=== PATIENT | male | born 1965 | race Caucasian/White ===

== ENCOUNTER 2016-10-28 12:15 | Inpatient (IN) | payer OTHER ==
[~2016-10-28] VITALS: Ht 170.2 cm; Wt 70.0 kg
[2016-10-28] MEDS ORDERED: SOD CHLORIDE 0.9% 1,000 ML IV STA (12:19)
[2016-10-28] MEDS ORDERED: ASPIRIN 81 MG TAB PO STA (12:19)
[2016-10-28] MEDS ORDERED: NITROGLYCERIN (SL) 0.4 MG TAB SL PRN ×2 (12:30→17:00)
[2016-10-28 12:40] LABS: ADD SCAN DIFF NO
[2016-10-28 12:46] LABS: BASOPHIL # 0.1 10^3/ul (0.0-0.1); BASOPHILS % 0.9 % (0.0-2.0); EOSINOPHILS % 0.5 % (0.0-7.0); HEMATOCRIT 42.6 % (42.0-52.0); HEMOGLOBIN 14.6 g/dl (14.0-18.0); LYMPHOCYTES # 2.1 10^3/ul (0.8-2.9); LYMPHOCYTES % 31.8 % (15.0-51.0); MEAN CORPUSCULAR HEMOGLOBIN 31.5 pg (29.0-33.0); MEAN CORPUSCULAR HGB CONC 34.3 g/dl (32.0-37.0); MEAN CORPUSCULAR VOLUME 91.8 fl (82.0-101.0); MEAN PLATELET VOLUME 9.8 fl (7.4-10.4); MONOCYTE # 0.5 10^3/ul (0.3-0.9); NEUTROPHIL # 3.9 10^3/ul (1.6-7.5); NEUTROPHILS % 58.7 % (39.0-77.0); PLATELET COUNT 261 10^3/UL (140-415); RED BLOOD COUNT 4.64 10^6/ul (4.70-6.10); RED CELL DISTRIBUTION WIDTH 12.8 % (11.5-14.5); WHITE BLOOD COUNT 6.6 10^3/ul (4.8-10.8)
[2016-10-28 13:01] LABS: CHLORIDE 105 mmol/L (97-110)
[2016-10-28 13:02] LABS: SODIUM 141 mmol/L (135-144)
[2016-10-28 13:04] LABS: ANION GAP 16 (8-16); CARBON DIOXIDE 24 mmol/L (21-31); CREATININE 0.59 mg/dl (0.61-1.24)
[2016-10-28 13:05] LABS: BLOOD UREA NITROGEN 17 mg/dl (7-20); CALCIUM 9.2 mg/dl (8.4-10.2); GLUCOSE 147 mg/dl (70-220)
[2016-10-28 13:06] LABS: INR 0.99; PROTIME 13.1 Sec (12.2-14.2)
[2016-10-28 13:12] LABS: B-TYPE NATRIURETIC PEPTIDE 30 PG/ML (0-125)
[2016-10-28 13:15] LABS: TROPONIN-I < 0.012 ng/ml (0.00-0.12)
--- NOTE | 2016-10-28 13:16 | RADRPT ---
PROCEDURE: XR Chest. CLINICAL INDICATION: Chest pain. TECHNIQUE: Single frontal view. COMPARISON: None. FINDINGS: The lungs are clear. The heart size is normal. There is no pleural effusion. There is no pneumothorax. IMPRESSION: 1. Normal chest radiograph. RPTAT: QQ .Humza Miller MD, Date Time Electronically viewed and signed by .Humza Miller MD, on 10/28/2016 13:15 .R/
[2016-10-28 13:46] LABS: PARTIAL THROMBOPLASTIN TIME 29.5 Sec (25.0-35.0)
--- NOTE | 2016-10-28 14:39 | ERD ---
ER Documentation Chief Complaint Date/Time DATE: 10/28/16 TIME: 14:36 Chief Complaint BIB RA 39 FOR EVAL OF SUBSTERNAL CP HPI This [age]-year-old male presents to the emergency room for evaluation of chest pain. This patient was brought into the emergency room by ambulance from his work. The patient states that when he was at work he got into an argument with a family member and started to bleed heavily. The patient states that his arms began to become numb and a started having chest pain. When EMS arrived they gave the patient at 162 mg of aspirin, 2 tabs of sublingual nitroglycerin and brought the patient to the emergency room for evaluation. The patient describes his pain as a pressure-like sensation in the center of his chest with no radiation. ROS All systems reviewed and are negative except as per history of present illness. Medications Home Meds No Active Prescriptions or Reported Meds Allergies Allergies: Coded Allergies: No Known Allergy (Unverified , 10/28/16) PMhx/Soc Medical and Surgical Hx: pt denies Medical Hx, pt denies Surgical Hx Hx Alcohol Use: No Hx Substance Use: No Hx Tobacco Use: No Smoking Status: Never smoker Physical Exam Vitals Vital Signs Date Time Temp Pulse Resp B/P Pulse Ox O2 Delivery O2 Flow Rate FiO2 10/28/16 12:42 64 20 118/83 99 Room Air 10/28/16 12:33 62 20 133/93 Nasal Cannula 2.0 10/28/16 12:21 Nasal Cannula 2 10/28/16 12:20 97.9 64 18 160/101 97 Physical Exam INITIAL VITAL SIGNS: Reviewed by me GENERAL: The patient is well developed and appropriate for usual state of health in no apparent distress HEENT: Pupils equal, round, and reactive to light. EOMI. There is no scleral icterus. NECK: C-spine is soft and supple, there is no meningismus. There is no cervical lymphadenopathy. LUNGS: Clear to auscultation bilaterally. There are no rales, wheezes or rhonchi. HEART: Regular rate and rhythm, no murmurs, clicks, rubs or gallops. ABDOMEN: Soft, non-tender, non-distended. There are bowel sounds in all four quadrants. No rebound or guarding. EXTREMITIES: There is no peripheral cyanosis or edema. No focal swelling or erythema. NEUROLOGICAL: The patient moves all four extremities with 5/5 strength. Cranial nerves II - XII are intact. Normal gait. Alert and oriented SKIN: There is no apparent rash or petechiae. HEME/LYMPHATIC: There is no evidence of excessive bruising or lymphedema. PSYCHIATRIC: The patient appears to be mildly anxious Result Diagram: 10/28/16 1235 10/28/16 1235 Results 24 hrs Laboratory Tests Test 10/28/16 12:35 White Blood Count 6.610^3/ul Red Blood Count 4.6410^6/ul Hemoglobin 14.6g/dl Hematocrit 42.6% Mean Corpuscular Volume 91.8fl Mean Corpuscular Hemoglobin 31.5pg Mean Corpuscular Hemoglobin Concent 34.3g/dl Red Cell Distribution Width 12.8% Platelet Count 00494^3/UL Mean Platelet Volume 9.8fl Neutrophils % 58.7% Lymphocytes % 31.8% Monocytes % 7.0% Eosinophils % 0.5% Basophils % 0.9% Nucleated Red Blood Cells % 0.0/100WBC Neutrophils # 3.910^3/ul Lymphocytes # 2.110^3/ul Monocytes # 0.510^3/ul Eosinophils # 0.010^3/ul Basophils # 0.110^3/ul Nucleated Red Blood Cells # 0.010^3/ul Prothrombin Time 13.1Sec Prothrombin Time Ratio 1.0 INR International Normalized Ratio 0.99 Activated Partial Thromboplast Time 29.5Sec Sodium Level 141mmol/L Potassium Level 4.0mmol/L Chloride Level 105mmol/L Carbon Dioxide Level 24mmol/L Anion Gap 16 Blood Urea Nitrogen 17mg/dl Creatinine 0.59mg/dl Glucose Level 147mg/dl Calcium Level 9.2mg/dl Troponin I < 0.012ng/ml B-Type Natriuretic Peptide 30PG/ML Current Medications Medications (Trade) Dose Ordered Sig/Kaila Route PRN Reason Start Time Stop Time Status Last Admin Dose Admin Sodium Chloride (NS) 1,000 ml @ 1,000 mls/hr Q1H STAT IV 10/28/16 12:19 10/28/16 13:18 DC 10/28/16 12:29 Aspirin (Aspirin) 162 mg ONCE STAT PO 10/28/16 12:19 10/28/16 12:20 DC 10/28/16 12:28 Nitroglycerin (Nitroglycerin (Sl Tab) 0.4 Mg) 1 tab Q5M UP TO 3 DOSES PRN SL CHEST PAIN 10/28/16 12:30 10/28/16 12:29 Procedures/MDM EKG: Rate/Rhythm: [Normal Sinus Rhythm] QRS, ST, T-waves: [No changes consistent w/ acute ischemia] Impression: [No evidence of ischemia or arrhythmia] EKG: #2 Rate/Rhythm: [Normal Sinus Rhythm] QRS, ST, T-waves: [No changes consistent w/ acute ischemia] Impression: [No evidence of ischemia or arrhythmia] EKG: #3 Rate/Rhythm: [Normal Sinus Rhythm] QRS, ST, T-waves: [No changes consistent w/ acute ischemia] Impression: [No evidence of ischemia or arrhythmia] Chest X-ray 1V Interpreted by me: Soft Tissue: No acute abnormalities Bones: No acute abnormalities Mediastinum/Cardiac Silhouette/Lungs: [No acute abnormalities] This 61-year-old male presents to the ER for evaluation of chest pain. When I evaluated this patient he appeared to be moderately anxious. There was a concern for possible ST elevation WI in the EEG prior to hospital arrival. I evaluated this EKG and the patient did not have an ST elevation WI. Obtain serial EKGs in the emergency room, none of which showed any ST elevations. This patient was given aspirin, nitroglycerin. Lab work was obtained including a chest x-ray. Troponin is normal. Chest x-ray is clear. This patient states is feeling much better now, and upon my reevaluation, the patient does not appear to be anxious anymore. This patient had a second troponin drawn and will be discharged home at this time. Differential diagnoses entertained was broad with potential high acuity. Patient has been evaluated for acute myocardial infarction, unstable angina, aortic dissection, pulmonary embolism, other intrathoracic and cardiac concerns. Ultimately the patient's evaluation is nondiagnostic. Based on the patient's lack of risk factors, as well as the patient's clinical, laboratory, and imaging data, the patient appears to be low risk for these high risk causes of chest pain. Departure Diagnosis: Primary Impression: Chest pain Additional Impression: Anxiety attack Condition: MARIE Dhillon DO Oct 28, 2016 14:39
[2016-10-28 16:25] VITALS: TEMP 98.5
[2016-10-28] MEDS ORDERED: HEPARIN 1000 UNITS/ML 10 ML INJ IV PRN (17:00)
[2016-10-28] MEDS ORDERED: HEPARIN 1000 UNITS/ML 10 ML INJ IV ONE (17:00)
--- NOTE | 2016-10-28 17:29 | ERA ---
ER Documentation Chief Complaint Date/Time DATE: 10/28/16 TIME: 17:20 Chief Complaint BIB RA 39 FOR EVAL OF SUBSTERNAL CP HPI 51-year-old man signed out to me for follow-up second troponin level. Patient presented today with concerning chest pain but the initial troponin and multiple EKGs were unremarkable. Initial workup was fairly unremarkable and the patient was treated with aspirin and nitroglycerin. Please refer to physician's earlier report for full ED management. ROS All systems reviewed and are negative except as per history of present illness. Medications Home Meds No Active Prescriptions or Reported Meds Allergies Allergies: Coded Allergies: No Known Allergy (Unverified , 10/28/16) PMhx/Soc None Medical and Surgical Hx: pt denies Medical Hx, pt denies Surgical Hx Hx Alcohol Use: No Hx Substance Use: No Hx Tobacco Use: No Smoking Status: Never smoker FmHx Family History: No diabetes Physical Exam Vitals Vital Signs Date Time Temp Pulse Resp B/P Pulse Ox O2 Delivery O2 Flow Rate FiO2 10/28/16 16:25 98.5 54 13 143/89 100 Nasal Cannula 2.0 10/28/16 12:42 64 20 118/83 99 Room Air 10/28/16 12:33 62 20 133/93 Nasal Cannula 2.0 10/28/16 12:21 Nasal Cannula 2 10/28/16 12:20 97.9 64 18 160/101 97 Physical Exam GENERAL: Well-developed, well-nourished, well-hydrated, in no apparent distress , looks nontoxic in appearance HEENT: Moist mucous membranes, pink conjunctiva, no cervical spine tenderness or step-off deformities, no goiter, no jaundice or icterus, extraocular movements intact without pain. No submandibular induration, and no pharyngeal erythema NEURO: Alert and oriented 3, cranial nerves II through XII intact bilaterally, pupils equal round reactive to light, no focal deficits or facial asymmetry, sensation intact distally Strength 5/5 in upper and lower extremities bilaterally CARDIAC: Bradycardic and regular, no murmurs rubs or gallops LUNGS: Clear bilaterally no wheezing crackles or stridor ABDOMEN: Soft nontender, no guarding, no rigidity, no rebound, no psoas sign no obturator sign. Normoactive bowel sounds SKIN: Warm and dry to touch, no abrasions, contusions, or hematomas, no lacerations, no ecchymosis, no target lesions, and without ulcers EXTREMITIES: No clubbing cyanosis or edema, calves are bilaterally symmetrical, no Homans sign, no popliteal cord sign. Distal pulses equal and bilateral PSYCH: Normal affect without agitation or irritability Result Diagram: 10/28/16 1235 10/28/16 1235 Results 24 hrs Laboratory Tests Test 10/28/16 12:35 10/28/16 15:05 White Blood Count 6.610^3/ul Red Blood Count 4.6410^6/ul Hemoglobin 14.6g/dl Hematocrit 42.6% Mean Corpuscular Volume 91.8fl Mean Corpuscular Hemoglobin 31.5pg Mean Corpuscular Hemoglobin Concent 34.3g/dl Red Cell Distribution Width 12.8% Platelet Count 20247^3/UL Mean Platelet Volume 9.8fl Neutrophils % 58.7% Lymphocytes % 31.8% Monocytes % 7.0% Eosinophils % 0.5% Basophils % 0.9% Nucleated Red Blood Cells % 0.0/100WBC Neutrophils # 3.910^3/ul Lymphocytes # 2.110^3/ul Monocytes # 0.510^3/ul Eosinophils # 0.010^3/ul Basophils # 0.110^3/ul Nucleated Red Blood Cells # 0.010^3/ul Prothrombin Time 13.1Sec Prothrombin Time Ratio 1.0 INR International Normalized Ratio 0.99 Activated Partial Thromboplast Time 29.5Sec Sodium Level 141mmol/L Potassium Level 4.0mmol/L Chloride Level 105mmol/L Carbon Dioxide Level 24mmol/L Anion Gap 16 Blood Urea Nitrogen 17mg/dl Creatinine 0.59mg/dl Glucose Level 147mg/dl Calcium Level 9.2mg/dl Troponin I < 0.012ng/ml 3.470ng/ml B-Type Natriuretic Peptide 30PG/ML Current Medications Medications (Trade) Dose Ordered Sig/Kaila Route PRN Reason Start Time Stop Time Status Last Admin Dose Admin Sodium Chloride (NS) 1,000 ml @ 1,000 mls/hr Q1H STAT IV 10/28/16 12:19 10/28/16 13:18 DC 10/28/16 12:29 Aspirin (Aspirin) 162 mg ONCE STAT PO 10/28/16 12:19 10/28/16 12:20 DC 10/28/16 12:28 Nitroglycerin (Nitroglycerin (Sl Tab) 0.4 Mg) 1 tab Q5M UP TO 3 DOSES PRN SL CHEST PAIN 10/28/16 12:30 10/28/16 12:29 Aspirin (Halfprin) 81 mg DAILY PO 10/29/16 09:00 UNV Docusate Sodium (Colace) 100 mg BID PO 10/28/16 21:00 Atorvastatin Calcium (Lipitor) 40 mg HS PO 10/28/16 21:00 UNV Lisinopril (Zestril) 20 mg DAILY PO 10/28/16 17:00 UNV Nitroglycerin (Nitroglycerin (Sl Tab) 0.4 Mg) 1 tab Q5M PRN SL ANGINA 10/28/16 17:00 UNV Miscellaneous Information (* Miscellaneous Pharmacy Order) DC previous hepa... ONCE ONCE XX 10/28/16 17:00 10/28/16 17:01 UNV Heparin Sodium (Porcine) (Heparin (1000 Units/ml)) 4,000 unit ONCE ONCE IV 10/28/16 17:00 10/28/16 17:01 UNV Heparin Sodium (Porcine) 4000 unit 4,000 unit PER PROTOCOL PRN IV aPTT<47 10/28/16 17:00 UNV Heparin Sodium (Porcine) (Heparin 88459 Units/250 ml) 250 ml @ 0 mls/hr PER PROTOCOL IV 10/28/16 17:00 UNV Procedures/MDM Second troponin was positive at 3.5 compared to the initial troponin which was 0. Immediate electrocardiogram was performed, read by me reveals a sinus bradycardia 53 bpm, normal axis, narrow QRS complex, no concerning ST elevations or depressions noted. I reviewed patient's previous EKGs and lab findings which were unremarkable. Patient was already treated with antiplatelet therapy and nitroglycerin. Patient states he has "mild" chest pain and states his chest pain is much improved compared to arrival. 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 [place] authorization number was [id number]. 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 Further management deferred to hospitalist. Departure Diagnosis: Primary Impression: Non-STEMI (non-ST elevated myocardial infarction) Ruled Out: Chest pain, Anxiety attack Condition: Serious Patient Instructions: Chest Pain, Uncertain Cause, Panic Attack Referrals: [facility] YOU HAVE RECEIVED A MEDICAL SCREENING EXAM AND THE RESULTS INDICATE THAT YOU DO NOT HAVE A CONDITION THAT REQUIRES URGENT TREATMENT IN THE EMERGENCY DEPARTMENT. FURTHER EVALUATION AND TREATMENT OF YOUR CONDITION CAN WAIT UNTIL YOU ARE SEEN IN YOUR DOCTORS OFFICE WITHIN THE NEXT 1-2 DAYS. IT IS YOUR RESPONSIBILITY TO MAKE AN APPOINTMENT FOR FOLOW-UP CARE. IF YOU HAVE A PRIMARY DOCTOR --you should call your primary doctor and schedule an appointment IF YOU DO NOT HAVE A PRIMARY DOCTOR YOU CAN CALL OUR PHYSICIAN REFERRAL HOTLINE AT IF YOU CAN NOT AFFORD TO SEE A PHYSICIAN YOU CAN CHOSE FROM THE FOLLOWING [facility] [address] [facility] [address] [facility] [facility] [address] [facility] [address] [facility] [facility] [address] [facility] [facility]. [address] Additional Instructions: Regrese a estas instalaciones si no se mejora aidan esperbamos o aidan le jettmos. VANESSA BELLO MD Oct 28, 2016 17:29
[2016-10-28 18:45] VITALS: PULSE 57
--- NOTE | 2016-10-28 19:27 | HP ---
Date/Time of Note Date/Time of Note DATE: 10/28/16 TIME: 19:20 Assessment/Plan VTE Prophylaxis VTE Prophylaxis Intervention: heparin Lines/Catheters IV Catheter Type (from Nrs): Saline Lock Assessment/Plan Assessment/Plan 51 yo M with 1. NSTEMI 2. Hypertension: ?new diagnosis PLAN: admit tele heparin drip / cardio consult / hold off on BB as patient is bradycardic / ACEi / ASA / Statin 2D echo / Nitroglycerin PRN Supportive care. HPI/ROS Admit Date/Time Admit Date/Time Oct 28, 2016 at 16:40 Hx of Present Illness PRESENTING COMPLAINT: Chest pain HISTORY OF PRESENTING COMPLAINT: This is 51-year-old male presents to the emergency room for evaluation of chest pain. This patient was brought into the emergency room by ambulance from his work. The patient states that his arms began to become numb and a started having chest pain while in an argument. When EMS arrived they gave the patient at 162 mg of aspirin, 2 tabs of sublingual nitroglycerin and brought the patient to the emergency room for evaluation. The patient describes his pain as a pressure-like sensation in the center of his chest with no radiation. ROS 12 point review if systems was done and pertinent findings are as noted. PMH/Family/Social Past Medical History Medical History: no pertinent history Past Surgical History Past Surgical Hx: no surgical history Family History Significant Family History: heart disease, hypertension Social History Alcohol Use: none Smoking Status: Never smoker Drug Use: none Exam/Review of Systems Vital Signs Vitals VS - Last 72 Hours, by Label Date Time Temp Pulse Resp B/P Pulse Ox O2 Delivery O2 Flow Rate FiO2 10/28/16 18:45 57 10/28/16 17:47 71 18 156/87 100 Nasal Cannula 2.0 10/28/16 16:25 98.5 54 13 143/89 100 Nasal Cannula 2.0 10/28/16 12:42 64 20 118/83 99 Room Air 10/28/16 12:33 62 20 133/93 Nasal Cannula 2.0 10/28/16 12:21 Nasal Cannula 2 10/28/16 12:20 97.9 64 18 160/101 97 Vital Signs Date Time Temp Pulse Resp B/P Pulse Ox O2 Delivery O2 Flow Rate FiO2 10/28/16 18:45 57 10/28/16 17:47 18 156/87 100 Nasal Cannula 2.0 10/28/16 16:25 98.5 Exam Constitutional: alert, oriented, No distress Psych: nl mood/affect Head: atraumatic, normocephalic Eyes: PERRL ENMT: mucosa pink and moist Neck: non-tender, supple Respiratory: clear to auscultation, normal air movement Cardiovascular: No murmurs/extra sounds, No regular rate and rhythm (kait) Gastrointestinal: bowel sounds, non-tender, soft Extremities: No edema Neurological: nl mental status, No focal weakness Skin: No rash or lesions Labs Result Diagram: 10/28/16 1235 10/28/16 1235 Medications Medications Current Medications Aspirin (Halfprin) 81 mg DAILY PO ; Start 10/29/16 at 09:00 Docusate Sodium (Colace) 100 mg BID PO ; Start 10/28/16 at 21:00 Atorvastatin Calcium (Lipitor) 40 mg HS PO ; Start 10/28/16 at 21:00 Lisinopril (Zestril) 20 mg DAILY PO ; Start 10/28/16 at 17:00 Nitroglycerin (Nitroglycerin (Sl Tab) 0.4 Mg) 1 tab Q5M PRN SL ANGINA; Start at 17:00 Metoprolol Tartrate (Lopressor) 25 mg BID PO ; Start 10/28/16 at 21:00 Isosorbide Dinitrate (Isordil) 20 mg TID PO ; Start 10/28/16 at 21:00 Procedures Procedures Laboratory Tests Test 10/28/16 12:35 10/28/16 15:05 White Blood Count 6.610^3/ul Red Blood Count 4.6410^6/ul Hemoglobin 14.6g/dl Hematocrit 42.6% Mean Corpuscular Volume 91.8fl Mean Corpuscular Hemoglobin 31.5pg Mean Corpuscular Hemoglobin Concent 34.3g/dl Red Cell Distribution Width 12.8% Platelet Count 08293^3/UL Mean Platelet Volume 9.8fl Neutrophils % 58.7% Lymphocytes % 31.8% Monocytes % 7.0% Eosinophils % 0.5% Basophils % 0.9% Nucleated Red Blood Cells % 0.0/100WBC Neutrophils # 3.910^3/ul Lymphocytes # 2.110^3/ul Monocytes # 0.510^3/ul Eosinophils # 0.010^3/ul Basophils # 0.110^3/ul Nucleated Red Blood Cells # 0.010^3/ul Prothrombin Time 13.1Sec Prothrombin Time Ratio 1.0 INR International Normalized Ratio 0.99 Activated Partial Thromboplast Time 29.5Sec Sodium Level 141mmol/L Potassium Level 4.0mmol/L Chloride Level 105mmol/L Carbon Dioxide Level 24mmol/L Anion Gap 16 Blood Urea Nitrogen 17mg/dl Creatinine 0.59mg/dl Glucose Level 147mg/dl Calcium Level 9.2mg/dl Troponin I < 0.012ng/ml 3.470ng/ml B-Type Natriuretic Peptide 30PG/ML PROCEDURE: XR Chest. CLINICAL INDICATION: Chest pain. TECHNIQUE: Single frontal view. COMPARISON: None. FINDINGS: The lungs are clear. The heart size is normal. There is no pleural effusion. There is no pneumothorax. IMPRESSION: 1. Normal chest radiograph. RPTAT: QQ .Humza Miller MD, Date Time Electronically viewed and signed by .Humza Miller MD, MD on 10/28/2016 13:15 .R/ CC: MARIE CARDENAS DO I reviewed EKG Rate: Within normal limits Rhythm: sinus Note: No ST elevation or depressions noted concerning for acute ischemic event. WARREN KIM Oct 28, 2016 19:27
[2016-10-28 20:14] VITALS: PULSE 58
[2016-10-28 20:19] VITALS: BP 131/77; RESP 20
[2016-10-28] MEDS: ISOSORBIDE DINITRATE 20 MG TAB PO SCH (20:35)
[2016-10-28] MEDS: LISINOPRIL 20 MG TAB PO SCH (20:35)
[2016-10-28] MEDS: DOCUSATE SODIUM 100 MG CAP PO SCH (20:35)
[2016-10-28] MEDS: ATORVASTATIN 40 MG TAB PO SCH (20:35)
[2016-10-28] MEDS: METOPROLOL 25 MG TAB PO SCH (20:36)
[2016-10-28] MEDS: HEPARIN 25000 UNITS/250 ML 250 ML IV SCH (20:48)
[2016-10-28 21:00] VITALS: Ht 170.2 cm; Wt 70.0 kg
[2016-10-28 22:17] LABS: CK-MB 7.42 ng/ml (0.0-2.4)
[2016-10-28 22:25] LABS: TROPONIN-I 3.54 ng/ml (0.00-0.12)
[2016-10-29] VITALS (14 sets, daily range): BP systolic 96–117; BP diastolic 55–68; PULSE 40–66; RESP 19–20
[2016-10-29 01:22] LABS: ADD UMIC NO; URINE BILIRUBIN (Dip) NEGATIVE (NEGATIVE); URINE BLOOD (Dip) NEGATIVE (NEGATIVE); URINE COLOR LT. YELLOW (YELLOW); URINE GLUCOSE (Dip) NEGATIVE (NEGATIVE); URINE KETONES (Dip) NEGATIVE (NEGATIVE); URINE LEUKOCYTE ESTERASE (Dip) NEGATIVE (NEGATIVE); URINE NITRITE (Dip) NEGATIVE (NEGATIVE); URINE TOTAL PROTEIN (Dip) NEGATIVE (NEGATIVE); URINE UROBILINOGEN (Dip) 0.2 E.U./dL (0.1-1.0)
[2016-10-29 02:39] LABS: BARBITURATES Negative (NEGATIVE); BENZODIAZEPINES Negative (NEGATIVE); CANNABINOIDS Negative (NEGATIVE); COCAINE Negative (NEGATIVE)
[2016-10-29 02:40] LABS: OPIATES Negative (NEGATIVE)
[2016-10-29 02:40] LABS: CK-MB 5.69 ng/ml (0.0-2.4); TROPONIN-I 1.69 ng/ml (0.00-0.12)
[2016-10-29 03:32] LABS: ADD SCAN DIFF NO
[2016-10-29 03:47] LABS: BASOPHIL # 0.1 10^3/ul (0.0-0.1); BASOPHILS % 0.8 % (0.0-2.0); EOSINOPHILS # 0.1 10^3/ul (0.0-0.5); EOSINOPHILS % 1.6 % (0.0-7.0); HEMOGLOBIN 13.1 g/dl (14.0-18.0); LYMPHOCYTES # 1.9 10^3/ul (0.8-2.9); LYMPHOCYTES % 30.2 % (15.0-51.0); MEAN CORPUSCULAR HEMOGLOBIN 31.7 pg (29.0-33.0); MEAN CORPUSCULAR HGB CONC 34.5 g/dl (32.0-37.0); MONOCYTE # 0.6 10^3/ul (0.3-0.9); MONOCYTES % 8.9 % (0.0-11.0); NEUTROPHIL # 3.7 10^3/ul (1.6-7.5); PLATELET COUNT 233 10^3/UL (140-415); RED BLOOD COUNT 4.13 10^6/ul (4.70-6.10); RED CELL DISTRIBUTION WIDTH 12.6 % (11.5-14.5); WHITE BLOOD COUNT 6.4 10^3/ul (4.8-10.8)
[2016-10-29 03:51] LABS: ALBUMIN 3.3 g/dl (3.3-4.9)
[2016-10-29 03:52] LABS: POTASSIUM 3.7 mmol/L (3.5-5.1)
[2016-10-29 03:54] LABS: BILIRUBIN,INDIRECT 1.1 mg/dl (0-1.1); BILIRUBIN,TOTAL 1.1 mg/dl (0.2-1.3); CREATININE 0.57 mg/dl (0.61-1.24); TOTAL PROTEIN 6.4 g/dl (6.1-8.1)
[2016-10-29 03:55] LABS: MAGNESIUM 1.8 mg/dl (1.7-2.5)
[2016-10-29 03:56] LABS: CHOL/HDL RATIO 4.2 RATIO
[2016-10-29 08:39] LABS: THYROID STIMULATING HORMONE 1.47 MIU/L (0.465-4.680)
[2016-10-29] MEDS: ISOSORBIDE DINITRATE 20 MG TAB PO SCH ×3 (09:09→21:00)
[2016-10-29] MEDS: ASPIRIN (EC) 81 MG TAB PO SCH (09:09)
[2016-10-29] MEDS: DOCUSATE SODIUM 100 MG CAP PO SCH ×2 (09:09→21:35)
[2016-10-29] MEDS: LISINOPRIL 20 MG TAB PO SCH (09:09)
[2016-10-29] MEDS: METOPROLOL 25 MG TAB PO SCH ×2 (09:09→21:00)
[2016-10-29] MEDS: HEPARIN 25000 UNITS/250 ML 250 ML IV SCH ×2 (09:41→20:03)
[2016-10-29] MEDS ORDERED: ACETAMINOPHEN 325 MG TAB PO PRN (14:00)
--- NOTE | 2016-10-29 15:11 | CONS ---
DATE OF ADMISSION: 10/28/2016 DATE OF CONSULTATION: 10/28/2016 REASON FOR CONSULTATION: Non-ST elevation myocardial infarction. REQUESTING PHYSICIAN: Dr. Kim from the hospitalist service. HISTORY OF PRESENT ILLNESS: Mr. Schulz is a very pleasant 51-year-old male with history of chronic back pain, who initially presented with complaints of substernal chest pain after having an argument with someone at work. Patient poorly describes the chest pain on the left side of his chest. Upon arrival to the emergency department, temperature 97.9, blood pressure is 160/101, pulse 64 , respiratory rate 18, saturating 97%. The patient's labs revealed white count 6.6, hemoglobin 14.6, platelet count 261. Sodium 141, potassium 4.0, creatinine of 0.59. Troponin initially negative. BNP of 30, INR 0.99. The patient underwent a chest x-ray revealing no acute cardiopulmonary abnormalities. The patient's initial electrocardiogram revealed normal sinus rhythm at rate of 71, normal axis, normal intervals with questionable peaked T waves in V3 and V4 and thereafter patient had serial EKGs which did not demonstrate any progression of ECG findings and notably no development of ST elevations. The patient was placed on medical therapy including heparin, aspirin, statin. The patient had a repeat troponin return positive now at 3.47. PAST MEDICAL HISTORY: As above in HPI. MEDICATIONS CURRENTLY IN HOSPITAL: 1. Aspirin 81 mg daily. 2. Colace 100 mg b.i.d. 3. Atorvastatin ____ at bedtime. 4. Zestril 20 mg daily. 5. Sublingual nitroglycerin p.r.n. 6. Heparin IV. ALLERGIES: NO KNOWN DRUG ALLERGIES. SOCIAL HISTORY: No tobacco, ETOH or illicit drug use. FAMILY HISTORY: No history of sudden cardiac or early CAD. REVIEW OF SYSTEMS: As above in HPI. CONSTITUTIONAL: No fevers, chills. PULMONARY: No current shortness of breath. CARDIOVASCULAR: Positive chest pain. GASTROINTESTINAL: No vomiting. GENITOURINARY: No hematuria. MUSCULOSKELETAL: Degenerative joint disease. PSYCHIATRIC: The patient denies depression. NEUROLOGIC: No documented history of CVA. PHYSICAL EXAMINATION VITAL SIGNS: Temperature 98.5, blood pressure ____/87, pulse 71, respiratory rate 18, saturating 100%. GENERAL: The patient is alert, awake, complaining of chest pain. NECK: JVP approximately 8 to 9 cm of water. CHEST: Fair air movement throughout. HEART: Regular rate and rhythm. Normal S1, S2, I/ systolic murmur, nondisplaced PMI. ABDOMEN: Positive bowel sounds, soft. EXTREMITIES: No edema, 1+ pulses bilaterally, posterior tibial. LABORATORY DATA: As above in HPI. No further labs for my review at this time. IMAGING STUDIES: As above in HPI. No further imaging studies for my review at this time. ECG: As above in HPI. No further electrocardiograms for my review at this time. IMPRESSION: 1. Non-ST elevation myocardial infarction. 2. Chest pain secondary to #1. 3. Hypertension, labile, borderline. 4. Abnormal electrocardiogram. RECOMMENDATIONS: 1. At this time, would maintain the patient on telemetry monitoring to follow rhythm and rate control closely. 2. Continue to trend the patient's cardiac enzymes and assess for significant ongoing cardiac damage. 3. Check a 2D echocardiogram to further assess patient's ejection fraction, wall motion and any major valve abnormalities in the setting of a non-ST elevation myocardial infarction. 4. Continue the patient's heparin IV at this time and continue the patient's aspirin. 5. Will initiate patient on low dose beta marilyn to decrease demand in the setting of acute myocardial infarction, and nitrates for symptomatology and follow closely 6. The patient will likely require left heart cathetererization and thus will be scheduled urgently. Thank you for allowing me to take part in the care of this patient. I will continue to follow along very closely with you. Further recommendations will be made as the patient progresses through his inpatient hospital clinical course. Dictated By: ANAI LOPEZ/ENZO Conf#: [id number] DID#: [id number] CC: WARREN KIM MD;*EndCC* MTDD
--- NOTE | 2016-10-29 15:12 | CONS ---
Date/Time of Note Date/Time of Note DATE: 10/29/16 TIME: 15:07 Assessment/Plan Assessment/Plan Chief Complaint/Hosp Course Imp: 1.NSTEMI-currently decreasing enzymes on current medical therapy 2.Chest pain secondary to #1 3.HTN 4.Dyslipidemia 5.BRadycardia Recc: -Tele -Trend cardiac enzynmes -Continue BB/ASA/STATIN -Decrease dose of zestril and oral nitrates -Continue IV heparin -LHC scheduled tomorrow 9:30AM Problems: Consultation Date/Type/Reason Admit Date/Time Oct 28, 2016 at 16:40 Initial Consult Date 10/29/16 Type of Consultation: cardiology Reason for Consultation nstemi Referring Provider: WARREN KIM Exam/Review of Systems Vital Signs Vitals Vital Signs Date Time Temp Pulse Resp B/P Pulse Ox O2 Delivery O2 Flow Rate FiO2 10/29/16 12:00 55 10/29/16 11:54 98.4 19 101/62 97 10/28/16 18:00 Nasal Cannula 2.0 Intake and Output 10/28/16 10/28/16 10/29/16 15:00 23:00 07:00 Intake Total 400 ml Output Total 300 ml Balance 100 ml Exam Review of Systems: CONSTITUTIONAL: No fevers, chills. PULMONARY: No sob CARDIOVASCULAR:mild chest pain ongoing GASTROINTESTINAL: No nausea/vomiting. GENITOURINARY: No hematuria/dysuria. MUSCULOSKELETAL: No myagias/arthalgias. PSYCHIATRIC: The patient denies depression. NEUROLOGIC: No weakness Constitutional: alert, oriented Psych: no complaints Head: normocephalic ENMT: mucosa pink and moist Neck: jvd (9), supple Respiratory: diminished breath sounds (@bases/B) Cardiovascular: regular rate and rhythm Gastrointestinal: non-tender, soft Musculoskeletal: muscle tone (normal) Extremities: edema (none) Neurological: other (No focal dseficits) Results Result Diagram: 10/29/168 10/29/168 Results 24 hrs Laboratory Tests Test 10/28/16 21:23 10/29/16 00:30 10/29/16 01:25 10/29/16 03:18 Creatine Kinase 214 H 194 Creatine Kinase Index 3.5 2.9 Creatinine Kinase MB (Mass) 7.42 H 5.69 H Troponin I 3.540 *H 1.690 *H Urine Color LT. YELLOW Urine Clarity CLEAR Urine pH 7.0 Urine Specific Rex 1.015 Urine Ketones NEGATIVE Urine Nitrite NEGATIVE Urine Bilirubin NEGATIVE Urine Urobilinogen 0.2 E.U./dL Urine Leukocyte Esterase NEGATIVE Urine Hemoglobin NEGATIVE Urine Glucose NEGATIVE Urine Total Protein NEGATIVE Urine Opiates Screen Negative Urine Barbiturates Negative Urine Amphetamines Screen Negative Urine Benzodiazepines Screen Negative Urine Cocaine Screen Negative Urine Cannabinoids Negative White Blood Count 6.4 Red Blood Count 4.13 L Hemoglobin 13.1 L Hematocrit 38.0 L Mean Corpuscular Volume 92.0 Mean Corpuscular Hemoglobin 31.7 Mean Corpuscular Hemoglobin Concent 34.5 Red Cell Distribution Width 12.6 Platelet Count 233 Mean Platelet Volume 10.0 Neutrophils % 58.0 Lymphocytes % 30.2 Monocytes % 8.9 Eosinophils % 1.6 Basophils % 0.8 Nucleated Red Blood Cells % 0.0 Neutrophils # 3.7 Lymphocytes # 1.9 Monocytes # 0.6 Eosinophils # 0.1 Basophils # 0.1 Nucleated Red Blood Cells # 0.0 Activated Partial Thromboplast Time 54.2 H Sodium Level 139 Potassium Level 3.7 Chloride Level 106 Carbon Dioxide Level 25 Anion Gap 12 Blood Urea Nitrogen 14 Creatinine 0.57 L Glucose Level 106 # Hemoglobin A1c 5.0 Calcium Level 9.0 Magnesium Level 1.8 Total Bilirubin 1.1 Direct Bilirubin 0.00 Indirect Bilirubin 1.1 Aspartate Amino Transf (AST/SGOT) 38 Alanine Aminotransferase (ALT/SGPT) 29 Alkaline Phosphatase 59 Total Protein 6.4 Albumin 3.3 Triglycerides Level 135 Cholesterol Level 209 H LDL Cholesterol, Calculated 133 HDL Cholesterol 49 Cholesterol/HDL Ratio 4.2 Thyroid Stimulating Hormone (TSH) 1.470 Test 10/29/16 10:09 Activated Partial Thromboplast Time 57.0 H Medications Medications Current Medications Aspirin (Halfprin) 81 mg DAILY PO Last administered on 10/29/16 09:09; Admin Dose 81 MG; Start 10/29/16 at 09:00 Docusate Sodium (Colace) 100 mg BID PO Last administered on 10/29/16 09:09; Admin Dose 100 MG; Start 10/28/16 at 21:00 Atorvastatin Calcium (Lipitor) 40 mg HS PO Last administered on 10/28/16 20:35 ; Admin Dose 40 MG; Start 10/28/16 at 21:00 Lisinopril (Zestril) 20 mg DAILY PO Last administered on 10/29/16 09:09; Admin Dose 20 MG; Start 10/28/16 at 17:00 Nitroglycerin (Nitroglycerin (Sl Tab) 0.4 Mg) 1 tab Q5M PRN SL ANGINA; Start at 17:00 Metoprolol Tartrate (Lopressor) 25 mg BID PO Last administered on 10/29/16 09: 09; Admin Dose 25 MG; Start 10/28/16 at 21:00 Isosorbide Dinitrate (Isordil) 20 mg TID PO Last administered on 10/29/16 09:09 ; Admin Dose 20 MG; Start 10/28/16 at 21:00 Acetaminophen (Tylenol Tab) 650 mg Q6H PRN PO PAIN AND OR ELEVATED TEMP Last administered on 10/29/16 14:20; Admin Dose 650 MG; Start 10/29/16 at 14:00 ANAI ROBISON Oct 29, 2016 15:12
--- NOTE | 2016-10-29 16:11 | RADRPT ---
Echocardiogram Report Patient Name: JOSELITO JORGE Gender: Male Date: 1965 Study Date: 29-Oct-2016 Board Certified Behavioral Analyst: [facility] Location: [id number] Ref. Physician: WARREN KIM Quality: Adequate Procedures: Transthoracic echocardiogram with complete 2D, M-Mode, and doppler examination. Indications: NSTEMI. 2D/M Mode Doppler Measurement Value Normal Ranges Measurement Value Normal Ranges LVIDd 2D 5.3 3.5 - 5.6 cm LVOT Peak Eyal 0.7 m/sec LVIDs 2D 3.3 2.1 - 4.1 cm LVOT Peak PG 1.9 mmHg LVPWd 2D 0.9 0.6 - 1.1 cm MV E Peak Eyal 0.8 m/sec IVSd 2D 0.8 0.6 - 1.1 cm MV A Peak Eyal 0.6 m/sec AoR Diam 2D 3.1 2.0 - 3.7 cm MV E/A 1.3 EDV 2D 135.0 cm3 MV Decel Time 277 msec ESV 2D 37.4 cm3 MV Decel [place] 3 MV E/A 1.3 TR Peak Eyal 1.7 m/sec TR Peak PG 11.8 mmHg Findings Left Ventricle: Normal left ventricular systolic function. Normal left ventricular cavity size. Normal left ventricular wall thickness. Moderate left ventricular systolic dysfunction. Ejection fraction is visually estimated at 3035 %. These segments of the LV are hypokinetic apex, apical septum, anteroseptum mid segment, anteroseptum base segment, inferior apex segment, Lateral apex, anterior apex segment, mid anterior segment and basal anterior segment. Right Ventricle: Normal right ventricular size. Normal right ventricular systolic function. Left Atrium: The left atrium is normal in size. Right Atrium: The right atrium is normal in size. Mitral Valve: Mild mitral leaflet calcification. Mild mitral valve regurgitation. Aortic Valve: Trileaflet aortic valve. Tricuspid Valve: There is trace to mild tricuspid regurgitation. Pulmonic Valve: There is trace pulmonic regurgitation. Pericardium: Normal pericardium with no significant pericardial effusion. Aorta: Normal aortic root. IVC: Normal size and normal respiratory collapse consistent with normal right atrial pressure. Conclusions 1.Normal left ventricular systolic function. Normal left ventricular cavity size. Normal left ventricular wall thickness. Moderate left ventricular systolic dysfunction. Ejection fraction is visually estimated at 30-35 %. 2.Mild mitral valve regurgitation. 3.There is trace to mild tricuspid regurgitation. 4.There is trace pulmonic regurgitation. Electronically Signed By: Jayro Cooper 29-Oct-2016 16:10:38 -0700 Patient Name: JOSELITO JORGE Study Date: 29-Oct-2016 [id number]
--- NOTE | 2016-10-29 16:21 | PN ---
DATE: 10/29/2016 INTERNAL MEDICINE FOLLOWUP SUBJECTIVE: Chart reviewed. The patient currently denies any chest pain. Troponins are positive f or acute non-ST PA. Currently on IV heparin. PHYSICAL EXAMINATION: VITAL SIGNS: Blood pressure 101/62, pulse 62, respirations 19, temperature 98.4. Currently on room air saturating 97%. HEENT: Pupils are equal and react to light. Anicteric sclerae. NECK: Supple, no JVD noted, no cervical adenopathy, no carotid bruits heard. LUNGS: Clear to auscultation and percussion. CARDIOVASCULAR: S1, S2 normal. ABDOMEN: Soft, nontender. No organomegaly or masses noted. EXTREMITIES: No clubbing, cyanosis, or edema noted. NEUROLOGICAL: Awake, alert and no focal deficits. LABORATORY DATA: Sodium 139, potassium 3.7, chloride 106, CO2 of 25, BUN 14, creatinine 0.57, gluco se 106. Troponin is elevated at 3.47, 3.54, 1.69. WBC 6.4, hemoglobin 13.1, hematocrit 38, platele ts 233. IMPRESSION: 1. Acute non-ST elevation myocardial infarction. 2. History of hypertension, question new. RECOMMENDATIONS: 1. Await cardiology evaluation. 2. Continue current treatment. 3. Will likely need coronary angiogram and intervention as necessary, as per cardiology. 4. Above discussed with the staff. Dictated By: ROMAN MORENO MD, MA/ENZO Conf#: [id number] DID#: [id number]
[2016-10-29] MEDS: ATORVASTATIN 40 MG TAB PO SCH (21:36)
[2016-10-30] VITALS (7 sets, daily range): BP systolic 96–140; BP diastolic 54–88; PULSE 50–59; RESP 16–20
[2016-10-30] MEDS ORDERED: DIAZEPAM 5 MG TAB PO SCH (07:00)
[2016-10-30] MEDS ORDERED: DIPHENHYDRAMINE 50 MG CAP PO SCH (07:00)
[2016-10-30] MEDS ORDERED: FENTAnyl 50 MCG/ML VIAL ONE (08:16)
[2016-10-30] MEDS ORDERED: IODIXANOL LOCM 100 ML BTL ONE (08:16)
[2016-10-30] MEDS ORDERED: MIDAZOLAM 1 MG/ML 2 ML INJ ONE (08:16)
[2016-10-30] MEDS ORDERED: HEPARIN 1000 UNITS/NS (A-LINE) 1,000 ML ONE (08:16)
[2016-10-30] MEDS ORDERED: LIDOCAINE 1% (MDV) 20 ML INJ ONE (08:16)
[2016-10-30] MEDS ORDERED: VERAPAMIL 5 MG INJ ONE (08:16)
[2016-10-30] MEDS ORDERED: HEPARIN 1000 UNITS/ML 10 ML INJ ONE (08:16)
[2016-10-30] MEDS ORDERED: NITROGLYCERIN (IC) 100 MCG/ML INJ ONE ×2 (08:17→08:29)
[2016-10-30] MEDS: METOPROLOL 25 MG TAB PO SCH (08:21)
[2016-10-30] MEDS: ASPIRIN (EC) 81 MG TAB PO SCH (08:22)
[2016-10-30] MEDS: ISOSORBIDE DINITRATE 20 MG TAB PO SCH ×2 (08:22→13:00)
[2016-10-30 08:34] LABS: INR 0.99; PROTIME 13.1 Sec (12.2-14.2)
[2016-10-30] MEDS ORDERED: DIPHENHYDRAMINE 25 MG CAP ONE (08:57)
[2016-10-30] MEDS ORDERED: LISINOPRIL 10 MG TAB PO SCH (09:00)
[2016-10-30] MEDS: DOCUSATE SODIUM 100 MG CAP PO SCH (09:00)
[2016-10-30 09:15] LABS: POTASSIUM 4.3 mmol/L (3.5-5.1)
[2016-10-30 09:18] LABS: CREATININE 0.67 mg/dl (0.61-1.24)
[2016-10-30 09:19] LABS: CALCIUM 9.3 mg/dl (8.4-10.2)
--- NOTE | 2016-10-30 09:37 | RADRPT ---
PROCEDURE: XR Chest AP portable CLINICAL INDICATION: Nstemi TECHNIQUE: An AP portable radiograph of the chest was submitted. COMPARISON: 10/28/2016 FINDINGS: Support Hardware: None Cardiovascular: The cardiovascular silhouette appears unremarkable. Lung [place]: The lung longoria appear clear with no nodule, alveolar infiltrate, or interstitial promi nence evident. Pleural Spaces: No pneumothorax or pleural effusion is identified. Osseous Structures: The osseous structures appear intact. Soft Tissues: The soft tissues appear unremarkable. IMPRESSION: Stable and unremarkable portable chest. Physician Pili Date Time Electronically viewed and signed by Physician Pili on 10/30/2016 09:37 RH/
--- NOTE | 2016-10-30 10:01 | CONS ---
Date/Time of Note Date/Time of Note DATE: 10/30/16 TIME: 09:57 Assessment/Plan Assessment/Plan Chief Complaint/Hosp Course Imp: 1.NSTEMI-currently decreasing enzymes on current medical therapy 2.Chest pain secondary to #1 3.HTN 4.Dyslipidemia 5.BRadycardia 6.Cardiomyopathy-EF 30-35% Recc: -Tele -Trend cardiac enzynmes -Continue BB/ASA/STATIN/ACEI -On IV heparin-ok to hold on transfer -Patient is chest pain free with decreased cardiac enzymes and hemodynamilcally stable at this time and thus ok for transfer to [place] at this time for further eval and work-up Problems: Consultation Date/Type/Reason Admit Date/Time Oct 28, 2016 at 16:40 Initial Consult Date 10/29/16 Type of Consultation: cardiology Reason for Consultation Nstemi Referring Provider: WARREN KIM Exam/Review of Systems Vital Signs Vitals Vital Signs Date Time Temp Pulse Resp B/P Pulse Ox O2 Delivery O2 Flow Rate FiO2 10/30/16 08:30 55 10/30/16 07:56 Nasal Cannula 2.0 10/30/16 07:47 98.3 18 140/88 99 Intake and Output 10/29/16 10/29/16 10/30/16 14:59 22:59 06:59 Intake Total 963.0 ml 880.45 ml Output Total 1600 ml Balance -637.0 ml 880.45 ml Exam Review of Systems: CONSTITUTIONAL: No fevers, chills. PULMONARY: No sob CARDIOVASCULAR: Intermittent chest pain GASTROINTESTINAL: No nausea/vomiting. GENITOURINARY: No hematuria/dysuria. MUSCULOSKELETAL: No myagias/arthalgias. PSYCHIATRIC: The patient denies depression. NEUROLOGIC: No weakness Constitutional: alert, oriented Psych: no complaints Head: normocephalic ENMT: mucosa pink and moist Neck: jvd, supple Respiratory: diminished breath sounds Cardiovascular: regular rate and rhythm Gastrointestinal: ascites, soft Musculoskeletal: muscle tone (normal) Extremities: edema (none) Neurological: other (No focal deficits) Results Result Diagram: 10/29/16 0318 10/30/16 0710 Results 24 hrs Laboratory Tests Test 10/29/16 10:09 10/29/16 19:20 10/30/16 07:10 Activated Partial Thromboplast Time 57.0 H 63.8 H Prothrombin Time 13.1 Prothrombin Time Ratio 1.0 INR International Normalized Ratio 0.99 Sodium Level 140 Potassium Level 4.3 Chloride Level 103 Carbon Dioxide Level 26 Anion Gap 15 Blood Urea Nitrogen 16 Creatinine 0.67 Glucose Level 94 Calcium Level 9.3 Medications Medications Current Medications Aspirin (Halfprin) 81 mg DAILY PO Last administered on 10/30/16 08:22; Admin Dose 81 MG; Start 10/29/16 at 09:00 Docusate Sodium (Colace) 100 mg BID PO Last administered on 10/29/16 21:35; Admin Dose 100 MG; Start 10/28/16 at 21:00 Atorvastatin Calcium (Lipitor) 40 mg HS PO Last administered on 10/29/16 21:36 ; Admin Dose 40 MG; Start 10/28/16 at 21:00 Nitroglycerin (Nitroglycerin (Sl Tab) 0.4 Mg) 1 tab Q5M PRN SL ANGINA; Start at 17:00 Acetaminophen (Tylenol Tab) 650 mg Q6H PRN PO PAIN AND OR ELEVATED TEMP Last administered on 10/29/16 14:20; Admin Dose 650 MG; Start 10/29/16 at 14:00 Isosorbide Dinitrate (Isordil) 10 mg TID PO Last administered on 10/30/16 08: 22; Admin Dose 10 MG; Start 10/29/16 at 21:00 Lisinopril (Zestril) 10 mg DAILY PO Last administered on 10/30/16 08:22; Admin Dose 10 MG; Start 10/30/16 at 09:00 Metoprolol Tartrate (Lopressor) 12.5 mg BID PO ; Start 10/29/16 at 21:00 Diazepam (Valium) 5 mg OC PO Last administered on 10/30/16 08:40; Admin Dose 5 MG; Start 10/30/16 at 07:00; Stop 11/01/16 at 06:59 Diphenhydramine HCl (Benadryl) 50 mg OC PO Last administered on 10/30/16 08:41 ; Admin Dose 50 MG; Start 10/30/16 at 07:00; Stop 11/01/16 at 06:59 ANAI ROBISON Oct 30, 2016 10:01
[2016-10-30 10:47] LABS: ADD SCAN DIFF NO
[2016-10-30 10:51] LABS: BASOPHILS % 0.8 % (0.0-2.0); EOSINOPHILS # 0.1 10^3/ul (0.0-0.5); EOSINOPHILS % 1.1 % (0.0-7.0); HEMATOCRIT 41.6 % (42.0-52.0); HEMOGLOBIN 14.2 g/dl (14.0-18.0); LYMPHOCYTES # 1.4 10^3/ul (0.8-2.9); LYMPHOCYTES % 26.4 % (15.0-51.0); MEAN CORPUSCULAR HEMOGLOBIN 31.6 pg (29.0-33.0); MEAN CORPUSCULAR HGB CONC 34.1 g/dl (32.0-37.0); MEAN CORPUSCULAR VOLUME 92.4 fl (82.0-101.0); MONOCYTE # 0.4 10^3/ul (0.3-0.9); MONOCYTES % 7.7 % (0.0-11.0); NEUTROPHIL # 3.4 10^3/ul (1.6-7.5); NEUTROPHILS % 63.2 % (39.0-77.0); PLATELET COUNT 225 10^3/UL (140-415); RED CELL DISTRIBUTION WIDTH 12.6 % (11.5-14.5); WHITE BLOOD COUNT 5.3 10^3/ul (4.8-10.8)
--- NOTE | 2016-10-30 13:36 | PDOCDIS ---
Discharge Instructions DIAGNOSIS Discharge Diagnosis: nstemi CONDITION Patient Condition: Stable HOME CARE INSTRUCTIONS: Special Diet: NPO ACTIVITY: Activity Restrictions: Slowly Increase Activity Rest between Activity FOLLOW UP/APPOINTMENTS Appointments admit to [facility] MD Oct 30, 2016 13:36
--- NOTE | 2016-10-30 22:30 | DS ---
DATE OF ADMISSION: 10/28/2016 DATE OF DISCHARGE: 10/30/2016 [facility] PRESS SERVICE READER: Jayro Cooper MD DIAGNOSES ON ADMISSION: 1. Non-ST elevated myocardial infarction. 2. Hypertension. 3. Dyslipidemia. 4. Sinus bradycardia. 5. Likely ischemic cardiomyopathy, EF of 35. HOSPITAL COURSE: This is a 51-year-old gentleman admitted with NSTEMI. The patient was prepped for catheter builder today when it was discovered he is insured by [employer]. The patient will be transferred to an accepting [facility] facility. The patient is chest pain free. His enzymes have improved. He is on a beta marilyn, aspirin, stati n, ROSALVA inhibitor. EF of 30% to 35% via echo. DISCHARGE PLAN: The patient will be discharged to [facility] accepting facility. DIET: Cardiac. ACTIVITY: Bathroom privileges. ALLERGIES: NO KNOWN DRUG ALLERGIES. CODE STATUS: FULL. CONDITION: Stable. PENDING TESTS: None. A 2D echo, EF 30% to 35%, moderate LV systolic dysfunction, mild MR. IMAGING STUDIES: Chest x-ray: No acute process. LABORATORIES: White cell count of 5, hemoglobin and hematocrit of 14 and 41, platelets of 225. INR is 0.99. Urine unremarkable. Tox screen unremarkable. CMP essentially unremarkable. Troponin as high as 3.50, now down to 1.69, cholesterol 209, triglycerides 135, LDL 133, HDL 49. TSH of 1.4. A1c of 5. DISCHARGE MEDICATIONS: STOPPED MEDICATIONS: 1. Tylenol as needed. 2. Ecotrin 81 daily. 3. Lipitor 40. 4. Diazepam. 5. . 6. Colace as needed. 7. Isordil 20. 8. Lisinopril 10. 9. Lopressor 12.5 twice daily. 10. NitroQuick as needed. 11. Hold Lovenox, heparin, etc., for cath. Dictated By: MOON HAYES/ENZO Conf#: [id number] DID#: [id number]
--- NOTE | 2016-10-31 10:20 | RADRPT ---
Vent Rate: 54 bpm RR Interval: 0 msec DE Interval: 174 msec QRS Duration: 86 msec QT Interval: 418 msec QTC Interval: 396 msec P-R-T [place]: 36 - 73 - 116 degrees Sinus bradycardia T wave abnormality, consider anterolateral ischemia Abnormal ECG Electronically Signed By: Lenard Vaughan [id number]
--- NOTE | 2016-10-31 18:27 | RADRPT ---
Vent Rate: 53 bpm RR Interval: 0 msec [place] Interval: 180 msec QRS Duration: 88 msec QT Interval: 486 msec QTC Interval: 456 msec P-R-T [place]: 55 - 70 - [address] amp; Marked T wave abnormality, consider anterolateral ischemia Abnormal ECG Electronically Signed By: Arvind Snyder [id number]
== END 2016-10-30 15:00 | disposition short-term general hospital (02) | DRG 282 ==
LOC: E/R 12:15 → MS4 16:40
PROVIDERS: ADMIT Family Medicine; ATTEND Family Medicine
DX: I21.4 Non-ST elevation (NSTEMI) myocardial infarction (principal); I10 Essential (primary) hypertension; E78.5 Hyperlipidemia, unspecified; R00.1 Bradycardia, unspecified; I25.5 Ischemic cardiomyopathy
CPT/HCPCS: 36415; 71010; 80048; 80061; 80076; 80307; 81003; 82550; 82553; 83036; 83735; 83880; 84443; 84484; 85025; 85610; 85730; 93005; 93306; J1644; J2250; J3010; J7030; Q9967